=== PATIENT | male | born 1965 | race Two or more races ===

== ENCOUNTER 2019-01-10 10:29 | Outpatient (CLI) | payer OTHER | END 2019-01-10 10:38 | disposition home or self-care (01) | LOC: RAD 501 10:29 | DX: M54.5 Low back pain (principal) ==

== ENCOUNTER 2019-01-26 09:52 | Outpatient (CLI) | payer OTHER | END 2019-01-26 10:31 | disposition home or self-care (01) | LOC: LAB 09:52 | DX: R97.20 Elevated prostate specific antigen [PSA] (principal) ==

== ENCOUNTER 2019-02-09 07:06 | Outpatient (CLI) | payer OTHER | END 2019-02-09 07:59 | disposition home or self-care (01) | LOC: SONOGRAMA 07:06 | DX: R97.20 Elevated prostate specific antigen [PSA] (principal) ==

== ENCOUNTER 2021-10-14 08:00 | Outpatient (CLI) | payer OTHER | END 2021-10-14 08:30 | disposition home or self-care (01) | LOC: PPH VACUNA 08:00 | PROVIDERS: ATTEND Emergency Medicine Pediatric Emergency Medicine | DX: Z23 Encounter for immunization (principal) ==